=== PATIENT | male | born 1995 | race Caucasian/White ===

== ENCOUNTER 2016-10-27 09:00 | Emergency (ER) | payer MEDICAID ==
[~2016-10-27] VITALS: Ht 177.8 cm; Wt 66.5 kg
[2016-10-27 09:02] VITALS: BP 112/75
== END 2016-10-27 09:59 | disposition home or self-care (01) ==
LOC: ED 09:53
DX: B08.1 Molluscum contagiosum (principal)
CPT/HCPCS: 99281

== ENCOUNTER 2020-12-20 11:39 | Emergency (ER) | payer BC, MEDICAID, OTHER ==
[~2020-12-20] VITALS: Ht 182.9 cm; Wt 72.2 kg
--- NOTE | 2020-12-20 12:01 | NUR ---
PT PLACED IN GOWN. PT DESCRIBES DIZZINESS SIMILAR TO "MOTION SICKNESS", WORSE WITH POSITION CHANGES. PT REPORTS OF NASAL CONGESTION, EAR "STUFFINESS" FOR TWO WEEKS. PULSE OX AND BP CUFF IN PLACE. CALL LIGHT WITHIN REACH.
--- NOTE | 2020-12-20 12:41 | NUR ---
URINE COLLECTED/SENT TO LAB.
[2020-12-20 13:00] LABS: MICROSCOPIC NOT IND
[2020-12-20 13:11] LABS: BASOPHILS % (AUTO) 1 % (0-1); EOSINOPHILS % (AUTO) 8 % (1-7); LYMPHOCYTES % (AUTO) 26 % (22-44); MEAN CORPUSCULAR HEMOGLOBIN 30.9 pg (27.5-34.5); MEAN CORPUSCULAR HGB CONC 34.2 g/dL (33.2-36.2); MEAN PLATELET VOLUME 9.2 fL (7.4-10.4); MONOCYTES % (AUTO) 8 % (2-9); NEUTROPHILS % (AUTO) 58 % (42-75); PLATELET COUNT 247 x10^3/uL (130-400); RED BLOOD COUNT 5.06 x10^6/uL (4.38-5.82); RED CELL DISTRIBUTION WIDTH 13.1 % (9.4-14.8)
[2020-12-20 13:22] LABS: ALBUMIN 4.1 g/dL (3.4-5.0); ANION GAP 3 mmol/L (5-15); CALCIUM 9.1 mg/dL (8.5-10.1); CHLORIDE 104 mmol/L (98-107)
[2020-12-20 13:25] LABS: ALANINE AMINOTRANSFERASE 24 U/L (12-78); ALKALINE PHOSPHATASE 74 U/L (45-117); BILIRUBIN,TOTAL 0.9 mg/dL (0.2-1.0); CREATININE 1.01 mg/dL (0.7-1.3); TOTAL PROTEIN 7.3 g/dL (6.4-8.2)
[2020-12-20 14:06] VITALS: BP 118/72
== END 2020-12-20 14:07 | disposition home or self-care (01) ==
LOC: ED 12:41
DX: R55 Syncope and collapse (principal); E87.1 Hypo-osmolality and hyponatremia; R06.02 Shortness of breath; R11.0 Nausea; R94.31 Abnormal electrocardiogram [ECG] [EKG]
CPT/HCPCS: 36415; 80053; 81003; 85025; 93005; 99284